=== PATIENT | male | born 1970 | race Caucasian/White ===

== ENCOUNTER 2018-09-12 10:31 | Emergency (ER) | payer OTHER ==
--- NOTE | 2018-09-12 10:58 | EDPHY ---
H & P Stated Complaint: Left chest pain since 0800, sent from . Time Seen by Provider: 09/12/18 10:45 HPI/ROS: Chief Complaint: Chest pain HPI: 48-year-old male's been having intermittent chest pain since last night after eating dinner. Patient is describing pain in the left center of his chest about fist size. Describes a tightness. At worst is a 4/10. It waxes and wanes. He woke up this morning with it in the center of his chest. Nonradiating. Has had similar episodes in the past. He went to urgent care this morning and had a normal ECG and sent here for further evaluation. He was noted to be hypertensive. Has a history of hypertension but has not been in any medication for this. Patient states he does get hypertensive when he is in the hospital. No fevers or chills. No shortness of breath. No leg pain or swelling. No recent travel. He does not smoke. No family history of coronary artery disease. ROS: 10 systems were reviewed and were negative except those elements noted in the HPI. PMH: Denies Social History: No smoking, occasional alcohol, no recreational drug use Family History: non-contributory Physical Exam: Gen: Awake, Alert, No Distress HEENT: Nose: no rhinorrhea Eyes: PERRLA, EOMI Mouth: Moist mucosa Neck: Supple, no JVD Chest: nontender, lungs clear to auscultation Heart: S1, S2 normal, no murmur Abd: Soft, non-tender, no guarding Back: no CVA tenderness, no midline tenderness Ext: no edema, non-tender Skin: no rash Neuro: CN II-XII intact, Sensation grossly intact, Strength 5/5 in bilateral upper and lower extremities - Personal History Current Tetanus Diphtheria and Acellular Pertussis (TDAP): Yes - Medical/Surgical History Hx Asthma: No Hx Chronic Respiratory Disease: No Hx Diabetes: No Hx Cardiac Disease: No Hx Renal Disease: No Hx Cirrhosis: No Hx Alcoholism: No Hx HIV/AIDS: No Hx Splenectomy or Spleen Trauma: No Other PMH: Denies. - Social History Smoking Status: Never smoked Constitutional: Initial Vital Signs Temperature (C) 36.5 C 09/12/18 10:35 Heart Rate 80 09/12/18 10:35 Respiratory Rate 16 09/12/18 10:35 Blood Pressure 189/119 H 09/12/18 10:35 O2 Sat (%) 95 09/12/18 10:35 O2 Delivery Mode Room Air Allergies/Adverse Reactions: No Known Allergies Allergy (Unverified 09/12/18 10:38) Home Medications: Medication Instructions Recorded NK [No Known Home Meds] 09/12/18 Medical Decision Making - Diagnostics EKG Interpretation: ECG time 10:46 a.m., sinus rhythm with a rate of 86, normal axis, normal intervals, no acute ST or T-wave changes. Impression: Normal ECG. Imaging Results: Imaging Impressions Chest X-Ray 09/12/18 11:35 Impression: 1. Possible airways disease. 2. Borderline cardiomegaly without decompensation. ED Course/Re-evaluation: 48-year-old male with chest pain since 8:00 a.m. This morning. Patient has a heart score of 2. This is low risk. Patient's troponin is 0 ECG is normal chest x-ray is unremarkable. Symptoms have been going on for several hours. He is low risk. I have reviewed the results of the initial diagnostic testing and the risk factors with the patient, including the results of the troponin and the ECG. The patient understands that since these are negative, the risk of having a heart attack or heart complication within the next 30 days is 1%, or 1/100. We discussed the patient's personal risk level evaluation and we discussed the importance of follow-up. If their symptoms are to worsen or if they are unable to get follow-up with one-week the patient will return to the emergency department. The decision to be discharged for outpatient follow-up was made by a shared decision making process between myself and the patient. - Data Points Laboratory Results: 09/12/18 10:52 POC Troponin I 0.00 ng/mL ng/mL (0.00-0.08) Point of Care Test Results: Chemistry 09/12/18 10:52 POC Troponin I 0.00 ng/mL ng/mL (0.00-0.08) Departure - Departure Disposition: Home, Routine, Self-Care Clinical Impression: Chest pain Condition: Good Instructions: Chest Pain (ED) Additional Instructions: Follow up with primary care physician and with Cardiology for further evaluation. Cardiology clinic should be calling you to arrange for an outpatient evaluation. Return emergency department for worsening chest pain, shortness of breath, fainting, lightheadedness, or any other concerns. Referrals: Lubna Edwards DO [Doctor of Osteopathy] - As per Instructions Adama Mckenzie MD [Medical Doctor] - As per Instructions
[2018-09-12 13:03] VITALS: BP 178/108
--- NOTE | 2018-09-13 13:58 | CPEKG ---
Test Reason : OPEN Blood Pressure : / mmHG Vent. Rate : 086 BPM Atrial Rate : 086 BPM P-R Int : 160 ms QRS Dur : 076 ms QT Int : 333 ms P-R-T Axes : 038 009 014 degrees QTc Int : 399 ms Sinus rhythm Confirmed by Zane Rasmussen ([id number]) on 09/13/2018 1:57:59 PM Referred By: Zane Rasmussen Confirmed By:Zane Rasmussen
== END 2018-09-12 13:00 | disposition home or self-care (01) ==
DX: R07.9 Chest pain, unspecified (principal)
CPT/HCPCS: 84484-ER